=== PATIENT | male | born 1990 | race Caucasian/White ===

== ENCOUNTER 2020-08-23 20:47 | Emergency (ER) | payer OTHER ==
--- NOTE | 2020-08-23 21:54 | EDM.PDOC ---
ED HPI GENERAL MEDICAL PROBLEM - General Chief Complaint: Respiratory Problem Stated Complaint: COUGH HEADACHE THROAT PAIN VOMITING Time Seen by Provider: 08/23/20 21:38 Source of Information: Reports: Patient History Limitations: Reports: No Limitations - History of Present Illness INITIAL COMMENTS - FREE TEXT/NARRATIVE: Mr. Ventura is a very pleasant 29-year-old gentleman who now presents the ED stating that he developed a nonproductive cough, sore throat, vomiting, watery diarrhea, and body aches this morning. He states that he felt a little under the weather last night, but his real symptoms developed this morning. He does not believe that he has had a fever. He was able to tolerate fluids today. He states that he took some Aleve this morning, which did not help with his symptoms. No similarly ill contacts. No recent bad tasting or smelling food. No recent travel. No recent antibiotics. No prior similar symptoms. Here in the ED, the patient is found to be hemodynamically stable, afebrile, saturating 98% on room air. He appears to be very comfortable, in no distress whatsoever. Prior to last night, the patient denies having a recent fever, chills, sore throat, ear pain, nasal or sinus congestion, cough, dyspnea, chest pain, palpitations, nausea, vomiting, constipation, diarrhea, abdominal pain, urinary symptoms, recent weight gain or weight loss, recent bloody bowel movements or black bowel movements, recent joint aches, headaches, or rashes. The patient does not believe that he acquired COVID-19 during this pandemic, but he has not been vaccinated, either. The patient does not have a PCP. His vaccinations are not up-to-date. Generalized Pain Score (Numeric/FACES): 8 - Related Data Allergies Allergy/AdvReac Type Severity Reaction Status Date / Time No Known Allergies Allergy Verified 08/23/20 21:12 Home Meds: Home Meds . [No Known Home Meds] 08/23/20 [History] Past Medical History HEENT History: Reports: Impaired Vision (blind left eye) - Past Surgical History HEENT Surgical History: Reports: Eye Surgery (left) Musculoskeletal Surgical History: Reports: ORIF (rigt forearm), Other (See Below) (Left wrist tendon repair. Right 2nd finger repair) Social & Family History - Tobacco Use Tobacco Use Status *Q: Former Tobacco User Tobacco Use Within Last Twelve Months: Vaping (Nicotine) Years of Tobacco use: 14 Packs/Tins Daily: 1.5 Month/Year Tobacco Last Used: Quit Jun 2020 Tobacco Use Comment: Started smoking at 15 yrs old - Caffeine Use Caffeine Use: Reports: Coffee - Alcohol Use Alcohol Use History: No - Recreational Drug Use Recreational Drug Use: Yes Drug Use in Last 12 Months: Yes Recreational Drug Type: Reports: Marijuana/Hashish (last smoked Jan 2020) - Living Situation & Occupation Living situation: Reports: Single, with Significant Other (Girlfriend + her son) Occupation: Employed (yard hand) ED ROS GENERAL - Review of Systems Review Of Systems: Comprehensive ROS is negative, except as noted in HPI. ED EXAM, GENERAL - Physical Exam Exam: See Below Exam Limited By: No Limitations General Appearance: Alert, WD/WN, No Apparent Distress Eye Exam: Bilateral Eye: EOMI, Normal Inspection Ears: Normal External Exam, Normal Canal, Hearing Grossly Normal, Normal TMs Nose: Normal Inspection, Normal Mucosa, No Blood Throat/Mouth: Normal Inspection, Normal Lips, Normal Teeth, Normal Gums, Normal Oropharynx, Normal Voice, No Airway Compromise Head: Atraumatic, Normocephalic Neck: Normal Inspection, Supple, Non-Tender, Full Range of Motion. No: Lymphadenopathy (L), Lymphadenopathy (R) Respiratory/Chest: No Respiratory Distress, Lungs Clear, Normal Breath Sounds, No Accessory Muscle Use. No: Decreased Breath Sounds, Crackles, Rhonchi, Wheezing, Stridor, Prolonged Expiration Cardiovascular: Normal Peripheral Pulses, Regular Rate, Rhythm, No Gallop, No JVD, No Murmur, No Rub Peripheral Pulses: 4+: Radial (L), Radial (R) GI/Abdominal: Normal Bowel Sounds, Soft, Non-Tender, No Organomegaly, No Distention, No Abnormal Bruit, No Mass Back Exam: Normal Inspection, Full Range of Motion, NT Extremities: Normal Inspection, Normal Range of Motion, No Pedal Edema, Normal Capillary Refill Neurological: Alert, Oriented, Normal Cognition, No Motor/Sensory Deficits Psychiatric: Normal Affect Skin Exam: Warm, Dry, Intact, Normal Color, No Rash Course - Vital Signs Last Recorded V/S: Last Vital Signs Temp 36.4 C 08/23/20 21:05 Pulse 89 08/23/20 21:05 Resp 16 08/23/20 21:05 BP 137/83 08/23/20 21:05 Pulse Ox 98 08/23/20 21:05 - Orders/Labs/Meds Labs: Laboratory Tests 08/23/20 08/23/20 08/23/20 Range/Units 21:05 21:56 22:07 WBC 12.00 H (4.23-9.07) K/mm3 RBC 4.54 L (4.63-6.08) M/mm3 Hgb 14.6 (13.7-17.5) gm/dl Hct 41.6 (40.1-51.0) % MCV 91.6 (79.0-92.2) fl MCH 32.2 (25.7-32.2) pg MCHC 35.1 (32.2-35.5) g/dl RDW Std Deviation 41.1 (35.1-43.9) fL Plt Count 242 (163-337) K/mm3 MPV 9.6 (9.4-12.3) fl Neutrophils % (Manual) 75 H (40-60) % Band Neutrophils % 0 (0-10) % Lymphocytes % (Manual) 24 (20-40) % Atypical Lymphs % 0 % Monocytes % (Manual) 0 L (2-10) % Eosinophils % (Manual) 0 L (0.8-7.0) % Basophils % (Manual) 1 (0.2-1.2) Platelet Estimate Adequate RBC Morph Comment Normal D-Dimer, Quantitative (0.19-0.50) mg/L Sodium (136-145) mEq/L Potassium (3.5-5.1) mEq/L Chloride (98-107) mEq/L Carbon Dioxide (21-32) mEq/L Anion Gap (5-15) BUN (7-18) mg/dL Creatinine (0.7-1.3) mg/dL Est Cr Clr Drug Dosing mL/min Estimated GFR (MDRD) (>60) mL/min BUN/Creatinine Ratio (14-18) Glucose (70-99) mg/dL Calcium (8.5-10.1) mg/dL Magnesium (1.8-2.4) mg/dL Total Bilirubin (0.2-1.0) mg/dL AST (15-37) U/L ALT (16-63) U/L Alkaline Phosphatase (46-116) U/L C-Reactive Protein (<1.0) mg/dL Total Protein (6.4-8.2) g/dl Albumin (3.4-5.0) g/dl Globulin gm/dL Albumin/Globulin Ratio (1-2) Influenza Type A RNA Negative (NEGATIVE) Influenza Type B RNA Negative (NEGATIVE) SARS-CoV-2 RNA (NADIA) Negative (NEGATIVE) Group A Strep (PCR) Not detected (NOT DETECT) 08/23/20 08/23/20 Range/Units 22:07 22:07 WBC (4.23-9.07) K/mm3 RBC (4.63-6.08) M/mm3 Hgb (13.7-17.5) gm/dl Hct (40.1-51.0) % MCV (79.0-92.2) fl MCH (25.7-32.2) pg MCHC (32.2-35.5) g/dl RDW Std Deviation (35.1-43.9) fL Plt Count (163-337) K/mm3 MPV (9.4-12.3) fl Neutrophils % (Manual) (40-60) % Band Neutrophils % (0-10) % Lymphocytes % (Manual) (20-40) % Atypical Lymphs % % Monocytes % (Manual) (2-10) % Eosinophils % (Manual) (0.8-7.0) % Basophils % (Manual) (0.2-1.2) Platelet Estimate RBC Morph Comment D-Dimer, Quantitative < 0.19 L (0.19-0.50) mg/L Sodium 145 (136-145) mEq/L Potassium 3.7 (3.5-5.1) mEq/L Chloride 107 (98-107) mEq/L Carbon Dioxide 24 (21-32) mEq/L Anion Gap 17.7 H (5-15) BUN 21 H (7-18) mg/dL Creatinine 1.2 (0.7-1.3) mg/dL Est Cr Clr Drug Dosing 101.49 mL/min Estimated GFR (MDRD) > 60 (>60) mL/min BUN/Creatinine Ratio 17.5 (14-18) Glucose 97 (70-99) mg/dL Calcium 8.7 (8.5-10.1) mg/dL Magnesium 2.6 H (1.8-2.4) mg/dL Total Bilirubin 0.8 (0.2-1.0) mg/dL AST 29 (15-37) U/L ALT 50 (16-63) U/L Alkaline Phosphatase 107 (46-116) U/L C-Reactive Protein 0.9 (<1.0) mg/dL Total Protein 6.8 (6.4-8.2) g/dl Albumin 4.1 (3.4-5.0) g/dl Globulin 2.7 gm/dL Albumin/Globulin Ratio 1.5 (1-2) Influenza Type A RNA (NEGATIVE) Influenza Type B RNA (NEGATIVE) SARS-CoV-2 RNA (NADIA) (NEGATIVE) Group A Strep (PCR) (NOT DETECT) - Re-Assessments/Exams Free Text/Narrative Re-Assessment/Exam: 08/23/20 21:52 As above, the patient had minimal symptoms last night, then developed a nonproductive cough with a sore throat, vomiting, watery diarrhea, and generalized body aches this morning. He took some Aleve this morning which did not help. No known fever, and he is afebrile here in the ED. His physical exam is grossly unremarkable. The triage nurse swabbed the patient for the SARS-CoV-2 virus and influenza A + B viruses, and I have ordered several blood tests, a rapid strep test, and a portable chest x-ray. 08/23/20 23:15 Portable chest radiograph appears to be grossly normal. The cardiac silhouette is within normal limits. No pulmonary vascular congestion. No pleural effusions seen on this AP view. No focal infiltrate. No pneumothorax. Formal read per the Radiologist pending. The patient's CBC is remarkable for mild leukocytosis of 12.00, but with 0% bandemia, and the remainder of his CBC being unremarkable. His CMP is remarkable for an anion gap slightly elevated at 17.7, but with a bicarbonate normal at 24. His BUN is slightly elevated at 21, with a Cr normal at 1.2, and the remainder of his CMP being unremarkable. His magnesium level is slightly elevated at 2.6. His CRP is within normal limits at 0.9. His D-dimer is undetectably low. His Group A strep by PCR is negative. His swab for the SARS-CoV-2 virus and influenza A + B disease negative for all. 08/23/20 23:18 Test results discussed with the patient. As above, today's work-up is grossly unremarkable. He is likely suffering from a viral URI, or possibly some viral gastroenteritis. Antibiotics are not indicated. I will provide him a note for work. Departure - Departure Time of Disposition: 23:19 Disposition: Home, Self-Care 01 Condition: Good Clinical Impression: Viral illness - Discharge Information *PRESCRIPTION DRUG MONITORING PROGRAM REVIEWED*: Not Applicable *COPY OF PRESCRIPTION DRUG MONITORING REPORT IN PATIENT CRISTINA: Not Applicable Instructions: Viral Illness, Adult Referrals: PCP,None [Primary Care Provider] - Forms: ED Department Discharge, ED Return to Work/School Form Additional Instructions: You were seen in the emergency room after developing a dry cough, sore throat, vomiting, watery diarrhea, and generalized body aches this morning. Work-up in the ER included several blood tests, a rapid strep test, a swab for the SARS-CoV-2 virus and influenza A + B viruses, and a chest x-ray. Your entire work-up was unremarkable. You do not have pneumonia. You do not have COVID-19. You do not have influenza. Do not have strep throat. Based on your history, physical exam, and ER tests, you are most likely suffering from a viral illness. Unfortunately, there are no medicines to treat a viral illness - it will have to run its course. We recommend that you stay adequately hydrated. Gatorade or Powerade are best. We recommend that you avoid juice and milk, as these may make your diarrhea worse. If you are hungry, we recommend a bland diet, such as toast, rice, or oatmeal. Chicken noodle soup with saltine crackers is an excellent choice. A note to be off work tomorrow has been provided to you. If any other problems, please do not hesitate to return to the ER. Sepsis Event Note (ED) - Evaluation Sepsis Screening Result: No Definite Risk
[2020-08-23 21:58] LABS: CORONAVIRUS COVID-19 NAA NEGATIVE (NEGATIVE)
--- NOTE | 2020-08-24 06:39 | CR ---
Chest: Portable view of the chest was obtained. Comparison: No prior chest imaging is available. Heart size and mediastinum are within normal limits. Lungs are clear with no acute parenchymal change. No acute osseous abnormality is appreciated. Impression: 1. Nothing acute is seen on portable chest x-ray. Diagnostic code #1
== END 2020-08-23 23:30 | disposition home or self-care (01) ==
LOC: JD.ED 20:47
DX: B34.9 Viral infection, unspecified (principal); Z20.822 Contact with and (suspected) exposure to COVID-19; Z87.891 Personal history of nicotine dependence
CPT/HCPCS: 0240U; 36415; 71045; 80053; 83735; 85007; 85027; 85379; 86140; 87651; 99284; 99283